=== PATIENT | female | born 1995 | race Caucasian/White ===

== ENCOUNTER 2022-06-16 16:46 | Emergency (ER) | payer MEDICAID ==
[~2022-06-16] VITALS: Ht 162.6 cm; Wt 88.0 kg
[2022-06-16 17:29] VITALS: BP 114/82
--- NOTE | 2022-06-16 17:39 | NUR ---
PT AMB TO BED 5.
--- NOTE | 2022-06-16 17:58 | NUR ---
Patient ambulated to restroom with steady gait.
--- NOTE | 2022-06-16 18:09 | NUR ---
Dr. iSlverio evaluating patient at bedside.
--- NOTE | 2022-06-16 18:14 | NUR ---
Per [facility], no report or incident number can be given if patient does not want to make a report. Call was recorded. Spoke to [id number]. Informed patient to go to [facility] if she wants to make a report.
--- NOTE | 2022-06-16 18:29 | NUR ---
Patient taken to CT via wheelchair.
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
--- NOTE | 2022-06-16 19:16 | NUR ---
Report given to LORETA Schneider for transfer of care.
[2022-06-16 20:05] VITALS: BP 99/67
--- NOTE | 2022-06-16 20:27 | NUR ---
Patient discharged with v/s stable. Written and verbal after care instructions given and explained. Patient verbalized understanding. Ambulatory with steady gait to home. All questions addressed prior to discharge. Advised to follow up with PMD.
== END 2022-06-16 20:27 | disposition home or self-care (01) ==
LOC: MED 16:46
DX: S00.83XA Contusion of other part of head, initial encounter (principal); Z90.49 Acquired absence of other specified parts of digestive tract; Y04.8XXA Assault by other bodily force, initial encounter; Y93.89 Activity, other specified; Y92.89 Other specified places as the place of occurrence of the external cause; Y99.8 Other external cause status
CPT/HCPCS: 70450; 72125; 81002; 81025; 99284

== ENCOUNTER 2024-01-25 14:56 | Emergency (ER) | payer MEDICAID, OTHER ==
[~2024-01-25] VITALS: Ht 162.6 cm; Wt 95.4 kg
[2024-01-25 15:15] VITALS: BP 114/76; PULSE 73; RESP 16; TEMP 98.6; O2SAT 100
[2024-01-25 17:00] LABS: BASOPHILS % (AUTO) 0.3 % (0.0-2.0); EOSINOPHILS # (AUTO) 0.1 K/uL (0-0.4); EOSINOPHILS % (AUTO) 0.9 % (0.0-4.0); HEMATOCRIT 40.4 % (36-48); HEMOGLOBIN 13.6 g/dL (12.0-16.0); LYMPHOCYTES # (AUTO) 2.1 K/uL (2.5-16.5); LYMPHOCYTES % (AUTO) 19.9 % (20.5-51.1); MEAN CORPUSCULAR HEMOGLOBIN 28 pg (27-31); MEAN CORPUSCULAR HGB CONC 34 g/dL (33-37); MEAN CORPUSCULAR VOLUME 84.2 fL (80-94); MONOCYTES # (AUTO) 0.5 K/uL (0.8-1.0); MONOCYTES % (AUTO) 4.9 % (1.7-9.3); NEUTROPHILS # (AUTO) 7.8 K/uL (1.8-7.7); PLATELET COUNT (AUTO) 385 K/uL (140-450); RED CELL DISTRIBUTION WIDTH 12.5 % (11.6-13.7); WHITE BLOOD COUNT (AUTO) 10.5 K/uL (4.8-10.8)
[2024-01-25 17:50] LABS: APPEARANCE,URINE SL CLOUDY (CLEAR); BILIRUBIN,URINE NEGATIVE (NEGATIVE); BLOOD, URINE 3+ (NEGATIVE); COLOR,URINE YELLOW (YELLOW); LEUKOCYTE ESTERASE ,URINE NEGATIVE (NEGATIVE); NITRITE, URINE NEGATIVE (NEGATIVE); PROTEIN,URINE NEGATIVE (NEGATIVE); UGLUCOSE NEGATIVE (NEGATIVE); UROBILINOGEN,URINE 0.2 EU/dL (0.2 - 1)
[2024-01-25 18:05] LABS: BACTERIA,URINE FEW /HPF (None Seen); RBC,URINE 20-50 /HPF (0-5); SQUAMOUS EPITHELIAL CELL,UR 0-3 (FEW) /LPF (0-3 (FEW)); WBC,URINE 0-5 /HPF (0-5)
[2024-01-25 19:00] VITALS: O2SAT 100
== END 2024-01-25 19:18 | disposition home or self-care (01) ==
LOC: MED 14:56
DX: O03.9 Complete or unspecified spontaneous abortion without complication (principal); Z79.899 Other long term (current) drug therapy
CPT/HCPCS: 36415; 76817; 81001; 81025; 84702; 85025; 86900; 86901; 99284